=== PATIENT | female | born 1990 | race Caucasian/White ===

== ENCOUNTER 2017-03-25 12:54 | Inpatient (IN) ==
[2017-03-25] MEDS ORDERED: METHYLERGONOVINE 0.2 MG/ML INJECTION IM PRN (16:03)
[2017-03-25] MEDS ORDERED: CARBOPROST 250 MCG/ML INJECTION IM PRN (16:03)
[2017-03-25] MEDS ORDERED: CALCIUM CARBONATE Chewable 500mg TABLET PO PRN (16:03)
[2017-03-25] MEDS ORDERED: MAG-AL + SIM ORAL LIQUID 30ml PO PRN (16:03)
[2017-03-25] MEDS ORDERED: ZOLPIDEM 5 MG TABLET PO PRN (16:03)
[2017-03-25] MEDS ORDERED: ACETAMINOPHEN 500 MG TABLET PO PRN (16:03)
[2017-03-25 16:22] VITALS: BMI 30.2
[2017-03-25] MEDS ORDERED: AMPICILLIN 2 GM in NS 100 ML IV ONE (17:05)
[2017-03-25] MEDS: LR 1,000 ML IV PRN (17:07)
[2017-03-25] MEDS: SALINE FLUSH 10ml SYRINGE IVF PRN ×2 (17:12→21:07)
[2017-03-25] MEDS: AMPICILLIN 1 GM in NS 100 ML IV SCH (21:09)
[2017-03-25] MEDS: HYDROCODONE/APAP 5mg/325mg TABLET PO PRN (21:51)
[2017-03-26] MEDS: AMPICILLIN 1 GM in NS 100 ML IV SCH ×6 (04:58→21:20)
[2017-03-26] MEDS ORDERED: OXYTOCIN DRIP 30 UNIT/500 ML ML IV PRN ×2 (05:00→05:02)
[2017-03-26] MEDS ORDERED: D5LR 1,000 ML IV PRN (05:02)
[2017-03-26] MEDS: D5LR 1,000 ML IV PRN ×2 (05:08→13:06)
[2017-03-26] MEDS: LR 1,000 ML IV PRN ×3 (07:22→19:54)
--- NOTE | 2017-03-26 09:06 | Anesthesia Preoperative Report ---
Anesthesia Epidural/Spinal Rec - Date and Time Date: 03/26/17 Preoperative Diagnosis: 39 wks Procedure: Labor Epidural Plan: Epidural - Vital Signs Vital Signs: Temperature 97.9 F 03/26/17 01:11 Pulse Rate 74 03/26/17 01:11 Respiratory Rate 16 03/26/17 01:11 Blood Pressure 132/75 03/26/17 01:11 Pulse Oximetry 98 03/25/17 16:00 Oxygen Delivery Method Room Air NPO since: 399 /Para: P:0 Heart Rate: 140 - Medictaions & Allergies Inpatient Medications: Current Medications Acetaminophen (Tylenol) 500 - 1,000 mg PO Q4H PRN PRN Reason: Pain Acetaminophen/Hydrocodone Bitart ([place] 5/325) 1 - 2 tab PO Q4H PRN PRN Reason: Pain Last Admin: 03/25/17 21:51 Dose: 2 tab Al Hydroxide/Mg Hydroxide (Maalox Plus) 30 ml PO Q3H PRN PRN Reason: Indigestion Calcium Carbonate (Tums) 500 - 1,000 mg PO Q2H PRN PRN Reason: Indigestion Carboprost Tromethamine (Hemabate) 250 mcg IM O PRN PRN Reason: .Downtime Lactated Ringer's (Lactated Ringers) 1,000 mls @ 1,000 mls/hr IV .Q1H PRN PRN Reason: as directed Last Admin: 03/26/17 07:22 Dose: 1,000 mls/hr Ampicillin Sodium 1 gm/ Sodium (Chloride) 100 mls @ 200 mls/hr IV Q4H GAUTAM Last Admin: 03/26/17 09:04 Dose: 200 mls/hr Dextrose/Lactated Ringer's (Dextrose 5%-Lactated Ringers) 1,000 mls @ 125 mls/ hr IV .Q8H PRN PRN Reason: Labor Last Admin: 03/26/17 05:08 Dose: 125 mls/hr Oxytocin (Pitocin Drip) 30 unit in 500 mls @ 2 mls/hr IV .Q24H PRN; Protocol PRN Reason: Induction/Augmentation Last Admin: 03/26/17 05:06 Dose: 2 mls/hr Methylergonovine Maleate (Methergine) 0.2 mg IM O PRN Misoprostol (Cytotec) 800 mcg NH ONCE PRN Sodium Chloride (Iv Flush) 10 - 80 ml IVF PRN PRN PRN Reason: Flushing Last Admin: 03/25/17 21:07 Dose: 30 ml Zolpidem Tartrate (Ambien) 5 mg PO O PRN PRN Reason: Insomnia Last Admin: 03/25/17 21:51 Dose: 5 mg Allergies/Adverse Reactions: Allergies Allergy/AdvReac Type Severity Reaction Status Date / Time No Known Allergies Allergy Unverified 09/26/11 15:52 - Home Medications Home Medications: Home Medications Medication Instructions Recorded Confirmed Type Vitamins 03/13/17 History Tylenol 03/13/17 History - Surgical History Anesthesia Reactions: None Hx Family Anesthesia Reaction: No History of Motion Sickness: No - Social History Smoking Status: Current every day smoker Second Hand Exposure: No Substance Use Type: does not use Alcohol Intake Frequency: does not drink Hx Chewing Tobacco Use: No - Pertinent Findings Lab Data: CBC and BMP 03/25/17 16:22 EKG Rhythm: Normal Sinus Rhythm - Physical Exam Respiratory Exam: lungs clear Cardiovascular Exam: regular rate and rhythm - Airway Assessment Mallampati Score: II TMD: 3 Fingerbreadths Neck Extension: good Overall Assessment: may be difficult intubation - ASA ASA Score: 2 - Discussion Discussion: Discussed risks/options/alternatives of anesthesia and questions answered. Patient consents. Nursing pain assessment noted. Anesthesia Discussion: family member Attestation Statement: Prior to the delivery of any anesthetic medication, I examined the patient, developed the plan, obtained the patient's consent and discussed the risk and benefits of the procedure with the patient/guardian.
[2017-03-26] MEDS ORDERED: ROPIVACAINE 1% 10MG/ML INJ 200 MG, SUFentanil 50 MCG in NS 100 ML EPI PRN (12:14)
[2017-03-26] MEDS ORDERED: DiphenhydrAMINE 50 MG/ML INJECTION IVP PRN (12:14)
[2017-03-26] MEDS ORDERED: NALOXONE 0.4 MG/ML INJECTION IVP PRN (12:14)
[2017-03-26] MEDS ORDERED: ONDANSETRON 4 MG/2 ML INJECTION IVP PRN (12:14)
[2017-03-26] MEDS ORDERED: CEFAZOLIN PREMIX (MC ONLY) 2 GM/50 ML BAG IV ONE (21:44)
[2017-03-26] MEDS ORDERED: FAMOTIDINE PB 20 MG/50 ML BAG IV ONE (21:44)
[2017-03-26] MEDS ORDERED: CITRIC ACID/SODIUM CITRATE 30ml PO ONE (21:44)
[2017-03-26] MEDS ORDERED: PHENYLEPHRINE INJ 10 MG/ML VIAL IV ONE (21:58)
[2017-03-26] MEDS ORDERED: SALINE FLUSH 10ml SYRINGE ONE ×2 (21:58→22:58)
[2017-03-26] MEDS ORDERED: ONDANSETRON 4 MG/2 ML INJECTION ONE (22:14)
[2017-03-26] MEDS ORDERED: AZITHROMYCIN IV 500 MG in NS 250ml 250 ML IV ONE (22:15)
[2017-03-26] MEDS: OXYTOCIN DRIP 30 UNIT/500 ML ML IV SCH ×2 (22:42→23:13)
[2017-03-26] MEDS ORDERED: MORPHINE SULFATE PF 5mg/10ml INJ (Duramorph) ONE (23:07)
[2017-03-26] MEDS ORDERED: DEXAMETHASONE 4 MG/ML INJECTION ONE (23:17)
[2017-03-26] MEDS ORDERED: METOCLOPRAMIDE 10mg/2ml INJECTION ONE (23:25)
[2017-03-27] MEDS ORDERED: HYDROCORTISONE 2.5% CREAM 30gm RECTALLY PRN (00:55)
[2017-03-27] MEDS ORDERED: OXYTOCIN DRIP 30 UNIT/500 ML ML IV SCH (00:55)
[2017-03-27] MEDS ORDERED: DiphenhydrAMINE 25 MG CAPSULE PO PRN (00:55)
[2017-03-27] MEDS: D5LR 1,000 ML IV SCH ×3 (01:02→22:37)
[2017-03-27] MEDS: IBUPROFEN 800 MG TABLET PO PRN ×2 (07:44→18:25)
--- NOTE | 2017-03-27 08:12 | OB/GYN Progress Note ---
OB-PP Progress Note - General PPD1 Maternal Group B Strep: Positive Maternal blood type: O+ Maternal Rubella Status: Immune - Subjective Date: 03/27/17 Lochia: Minimal Pain: contolled Voiding: herrera still in place Nausea or Vomiting Present: No - Objective Vital Signs: Last Vital Signs Temp 98.4 F 03/27/17 07:46 Pulse 97 03/27/17 07:46 Resp 16 03/27/17 07:46 BP 137/75 03/27/17 07:46 Pulse Ox 99 03/27/17 07:46 Urine Output: good General: alert and oriented Abdomen: fundus firm, non-tender, soft, non-distended Incision: dressed Extremities: non-tender Laboratory: Laboratory Results - last 24 hr 03/27/17 04:47 WBC 16.2 H D RBC 3.65 L Hgb 10.7 L D Hct 33.2 L D MCV 91.0 MCH 29.3 MCHC 32.2 RDW Std Deviation 43.9 Plt Count 134 MPV 11.5 - Assessment (1) Status post primary low transverse section Status: Acute (2) Group B Streptococcus carrier, delivered, current hospitalization Status: Acute - Plan Plan: routine care (Delivery reviewed with patient and . Q&A. )
--- NOTE | 2017-03-27 10:18 | Anesthesia Postoperative Note ---
- Date and Time Date: 03/27/17 Time: 10:15 - Status Patient Participated in Evaluation: Patient Participated in Person Vital Signs: Temperature 98.4 F 03/27/17 07:46 Pulse Rate 97 03/27/17 07:46 Respiratory Rate 16 03/27/17 07:46 Blood Pressure 137/75 03/27/17 07:46 Pulse Oximetry 99 03/27/17 07:46 Oxygen Delivery Method Room Air Respiratory Function: Airway Patent, Regular Respirations Cardiovascular Function: Regular Pulse Mental Status: Alert and Oriented Pain Intensity: 0 Hydration: Taking PO Fluids Complications During Recover: None Apparent Post Anesthesia Care Notes: ambulatory without problems - Follow-Up Instructions Instructions: Per Surgeon
[2017-03-27] MEDS: SIMETHICONE 80 MG CHEWABLE TABLET PO SCH ×4 (12:51→22:39)
[2017-03-27] MEDS: HYDROCODONE/APAP 5mg/325mg TABLET PO PRN ×3 (12:51→22:43)
[2017-03-27] MEDS: DOCUSATE CALCIUM 240 MG CAPSULE PO SCH (12:51)
--- NOTE | 2017-03-27 13:38 | Operative Note ---
DATE OF PROCEDURE 03/27/2017 PREOPERATIVE DIAGNOSIS 1. 26-year-old, 1, at 39 weeks 6 days gestational age. 2. Arrest of descent. POSTOPERATIVE DIAGNOSIS 1. 26-year-old, 1, at 39 weeks 6 days gestational age. 2. Arrest of descent. PROCEDURE Primary low transverse section. SURGEON Dr. Melly Nguyen ACCOUNTING ADVISORY SERVICES MANAGER Wilver Marks, Hand Cloth Cutter ANESTHESIA Epidural by Amol Butler CRNA COMPLICATIONS None. EBL 800 ml FINDINGS Viable male infant, cephalic OP position, clear fluids, Apgars 2/6/9, weight 3564 g, name "Michele." Normal-appearing uterus and adnexa. A very small pelvis. INDICATIONS Radha was brought in on the evening of 03/25/2017 for Ackerman bulb cervical ripening. She was also started on ampicillin for her group B strep. The next morning she was started on Pitocin. Before 7 o'clock she had a 4-minute deceleration and the Pitocin was turned off. After this her membranes were ruptured artificially returning clear fluids. The Pitocin was restarted at a small dose. She received an epidural. An IUPC was placed to help titrate the Pitocin. When she got to be complete she was only +1 station, so she labored down for an hour to +2 station. She then pushed for 2-1/2 hours. She rotated the baby from OT to having the sagittal suture straight anterior-posterior. We discussed an operative vaginal delivery with forceps versus a primary and she opted for the latter. DESCRIPTION OF PROCEDURE The patient was taken to the operating room where her epidural was brought up to adequate surgical levels. She already had a Ackerman catheter in place. She was prepared and draped in the normal sterile fashion. A Pfannenstiel skin incision was made 2 cm above the symphysis pubis and carried down to the fascia. The fascia was incised in the midline and extended laterally with the Rock scissors. The fascia was elevated and the underlying rectus muscles were dissected off. The peritoneum was entered bluntly and this was extended superiorly and inferiorly with good visualization of the bladder. The bladder blade was inserted. A bladder flap was created sharply and the bladder blade reinserted. The lower uterine segment was incised transversely layer by layer with the scalpel and bluntly extended. We attempted to the deliver the baby's head. The pelvis was so tight that I could not reach the top of the baby's head, especially with the baby being in OP position. I had one of the nurses put on a sterile glove and lift up from below, but she couldn't really reach. Dr. Marks also attempted to extract the head, but he could not fit his hand in either. After struggling with this, he went down below to help push the baby's head up, but he was also unable to lift the head from down below. I finally went down between the legs and had a nurse on each side hold the patient's legs back in lithotomy. This allowed the pelvis to open up enough that I could reach my hand inside and push the baby up enough that Dr. Marks could extract the head from up above. The nose and mouth were suctioned. There was terminal meconium noted. The cord was clamped and cut. The was handed to Dr. Lynn who was asked to attend the delivery due to the arrest of descent. The placenta delivered spontaneously. The uterus was exteriorized and cleared of all clots and debris. The uterine incision was closed with running locked 0 Monocryl. There was a very small extension of the incision on the right side that was also repaired with running locked 0 Monocryl. Good hemostasis was noted. The uterus was returned to the abdomen. The gutters were cleared of all clots and debris. The uterine incision was inspected one final time and still noted to be hemostatic. The peritoneum was closed with running 2-0 Vicryl. Hemostasis was obtained in the rectus muscles with the cautery. The fascia was closed with running 0 Vicryl. Hemostasis was obtained in the subcutaneous tissue with the cautery. The skin was closed with 4-0 Vicryl in a subcuticular manner. Steri-Strips were placed. Sponge and sharp and instrument counts were correct. The patient tolerated the procedure well and was taken to the recovery room in good condition. JACQUELYN
[2017-03-27] MEDS: SIMETHICONE 80 MG CHEWABLE TABLET PO PRN ×2 (18:22→22:38)
[2017-03-27 18:49] VITALS: RESP 18
--- NOTE | 2017-03-28 07:10 | OB/GYN Progress Note ---
OB-PP Progress Note - General PPD1, PPD2 POD:: POD2 - Subjective Date: 03/28/17 Lochia: Minimal Pain: contolled Voiding: voiding Nausea or Vomiting Present: No - Objective Vital Signs: Last Vital Signs Temp 98.0 F 03/28/17 04:00 Pulse 71 03/28/17 04:00 Resp 18 03/28/17 04:00 BP 121/65 03/28/17 04:00 Pulse Ox 98 03/28/17 04:00 Urine Output: good General: alert and oriented Respiratory: non-labored Abdomen: fundus firm Incision: normal Edema: none - Assessment (1) Status post primary low transverse section Status: Acute (2) Group B Streptococcus carrier, delivered, current hospitalization Status: Acute - Plan Plan: routine care Expected date of discharge: 03/28/17
--- NOTE | 2017-03-28 07:18 | Discharge Instructions ---
Discharge Plan - Med Rec/Dispo Referrals/Follow Up: Melly Nguyen MD [Physician] - Prescriptions: New Ibuprofen [Motrin] 800 mg PO Q8H PRN #30 tablet PRN Reason: Pain Hydrocodone/APAP 5/325 [[place] 5/325] 1 - 2 tab PO Q4H PRN #30 tablet PRN Reason: Pain Continue Vitamins Discontinued Tylenol Discharge Instructions/Outpatient Orders: Final Provider Discharge Instructions Location: Determined By Patient - Disposition 01 Discharged Home, Self-Care
[2017-03-28] MEDS: IBUPROFEN 800 MG TABLET PO PRN ×2 (09:53→20:49)
[2017-03-28] MEDS: DOCUSATE CALCIUM 240 MG CAPSULE PO SCH (09:53)
[2017-03-28] MEDS: SIMETHICONE 80 MG CHEWABLE TABLET PO SCH ×3 (09:53→20:50)
[2017-03-28] MEDS: HYDROCODONE/APAP 5mg/325mg TABLET PO PRN ×3 (09:54→20:48)
[2017-03-28] MEDS: D5LR 1,000 ML IV SCH (13:22)
[2017-03-28] MEDS: SIMETHICONE 80 MG CHEWABLE TABLET PO PRN ×2 (15:47→20:48)
[2017-03-28 22:03] VITALS: BP 135/76; PULSE 89; TEMP 98.1; O2SAT 100
[2017-03-29] MEDS: SIMETHICONE 80 MG CHEWABLE TABLET PO SCH (00:21)
== END 2017-03-28 23:16 | disposition home or self-care (01) | DRG 766 ==
LOC: MC 15:53
PROVIDERS: ADMIT Obstetrics & Gynecology; ATTEND Obstetrics & Gynecology